=== PATIENT | female | born 1975 | race Hispanic/Latino ===

== ENCOUNTER 2021-07-12 12:43 | Emergency (ER) | payer BC ==
[~2021-07-12] VITALS: Ht 154.9 cm; Wt 90.7 kg
[2021-07-12] MEDS ORDERED: ACETAMINOPHEN 325 MG TAB PO ONE (13:00)
[2021-07-12] MEDS ORDERED: ACETAMINOPHEN 325 MG TAB PO PRN (13:00)
[2021-07-12] MEDS ORDERED: CASIRIVIMAB/IMDEVIMAB 10 ML in SODIUM CHLORIDE 0.9% 100 ML IV ONE (13:00)
[2021-07-12] MEDS ORDERED: SODIUM CHLORIDE 0.9% 100 ML ONE (13:06)
[2021-07-12 13:35] VITALS: BP 135/78
== END 2021-07-12 13:37 | disposition home or self-care (01) ==
LOC: ER 12:47
DX: U07.1 COVID-19 (principal); R50.9 Fever, unspecified; I10 Essential (primary) hypertension; E11.9 Type 2 diabetes mellitus without complications
CPT/HCPCS: 99283; J7050

== ENCOUNTER → 2021-09-25 | Outpatient (CLI) | payer BC ==
[~2021-09-25] MED LIST: IOPAMIDOL 370 MG/ML 200 ML INFUS..BTL INJ ONE; SODIUM CHLORIDE 0.9% 50ML 50 ML ONE
[2021-09-25 09:51] LABS: CREATININE, SERUM 0.62 mg/dL (0.57-1.11)
[2021-09-25 10:17] LABS: INR 0.94; PROTHROMBIN TIME 13.3 seconds (11.9-14.5)
[2021-09-25 10:18] LABS: PARTIAL THROMBOPLASTIN TIME 24.2 seconds (23.8-35.5)
[2021-09-25 10:48] LABS: ALBUMIN 3.2 g/dL (3.5-5.0); ALBUMIN/GLOBULIN RATIO 0.8 (0.8-2.0); ANION GAP 16.1 mmol/L (8-16); CREATININE, SERUM 0.66 mg/dL (0.57-1.11); POTASSIUM 4.1 mmol/L (3.5-5.1)
== END ==
LOC: CT 08:39
PROVIDERS: ATTEND Surgery
DX: D73.5 Infarction of spleen (principal); K76.0 Fatty (change of) liver, not elsewhere classified; E27.9 Disorder of adrenal gland, unspecified
CPT/HCPCS: 36415; 74160; 80053; 82150; 82565; 84520; 85610; 85730; Q9967

== ENCOUNTER 2021-10-07 08:43 | Inpatient (IN) | payer BC ==
[2021-10-03 10:18] LABS: BASOPHILS # (AUTO) 0.1 (0.0-0.1); BASOPHILS % 0.7 % (0.0-1.0); EOSINOPHILS # (AUTO) 0.3 (0.0-0.4); EOSINOPHILS % 3.3 % (0.0-6.0); HEMATOCRIT 39.7 % (34.2-44.1); HEMOGLOBIN 11.8 g/dL (12.0-16.0); LYMPHOCYTES # (AUTO) 2.5 (1.0-3.2); LYMPHOCYTES % 29.5 % (18.0-39.1); MEAN CORPUSCULAR HEMOGLOBIN 21.9 pg (28-32); MEAN CORPUSCULAR HGB CONC 29.7 g/dL (31-35); MEAN CORPUSCULAR VOLUME 73.7 fL (81-99); MONOCYTES # (AUTO) 0.5 (0.2-0.8); MONOCYTES % 5.9 % (4.4-11.3); NEUTROPHILS # (AUTO) 5.1 (2.1-6.9); NEUTROPHILS % 60.4 % (38.7-80.0); PLATELET COUNT 690 x10e3/uL (140-360); RED BLOOD COUNT 5.39 x10e6/uL (3.6-5.1); RED CELL DISTRIBUTION WIDTH 17.9 % (11.7-14.4)
[~2021-10-07] VITALS: Ht 154.9 cm; Wt 92.2 kg
[~2021-10-07 08:43] MED LIST changes: +BASAGLAR K100 UNIT/1 SC; +CIPRO500 MG PO; -IOPAMIDOL 370 MG/ML 200 ML INFUS..BTL INJ ONE; +IPRATROPIU0.2 MG/1 M INH; +IRBESARTAN300 MG PO; +NOVOLIN 70100 UNIT/3 SC; -SODIUM CHLORIDE 0.9% 50ML 50 ML ONE; +SYMBICORT 16010.2 GM INH
[2021-10-07] MEDS ORDERED: INSULIN REGULAR, HUMAN 100 UNIT/1 ML ONE ×2 (09:28→12:57)
[2021-10-07] MEDS ORDERED: FENTANYL CITRATE/PF 100MCG/2 ML INJ ONE ×2 (12:33→15:49)
[2021-10-07] MEDS ORDERED: MIDAZOLAM HCL 2 MG/2 ML VIAL ONE (12:33)
[2021-10-07] MEDS ORDERED: LEVOFLOXACIN 500MG/D5W 100ML 100 ML IV ONE (13:19)
[2021-10-07] MEDS ORDERED: NALOXONE HCL INJ 0.4 MG/ML AMP IV PRN (15:30)
[2021-10-07] MEDS ORDERED: HYDROMORPHONE 0.2MG/ML-SOD CHL 30ML PCA SYRINGE IV ONE (16:01)
[2021-10-07] MEDS: INSULIN REGULAR, HUMAN 100 UNIT/1 ML SQ SCH (16:20)
[2021-10-07] MEDS ORDERED: DEXTROSE 50% SYRINGE 50 ML IV PRN (17:30)
[2021-10-07 17:35] VITALS: BP 100/65
[2021-10-07] MEDS: LEVOFLOXACIN 500MG/D5W 100ML 100 ML IV SCH (17:36)
[2021-10-07 17:45] VITALS: BP 100/65
[2021-10-07 17:53] VITALS: BP 100/65
[2021-10-07] MEDS: SODIUM CHLORIDE 0.9% 1000ML 1,000 ML IV SCH ×2 (17:59→23:56)
[2021-10-07] MEDS ORDERED: ACETAMINOPHEN 1000 MG/100 ML IV PRN (18:00)
[2021-10-07] MEDS: SODIUM CHLORIDE 0.9% 250ML IRRIG IR SCH ×3 (18:15→23:56)
[2021-10-07] MEDS ORDERED: INSULIN REGULAR, HUMAN 100 UNIT/1 ML SQ ONE (19:15)
[2021-10-07 20:00] VITALS: BP 96/74
[2021-10-07 21:00] VITALS: BP 96/74
[2021-10-07] MEDS: HYDROMORPHONE 0.2MG/ML-SOD CHL 30ML PCA SYRINGE IV PRN (23:26)
[2021-10-07] MEDS: ONDANSETRON HCL INJ 2MG/ML 2ML 2 MG/ML VIAL IV PRN (23:56)
[2021-10-08] VITALS (8 sets, daily range): BP systolic 117–138; BP diastolic 76–90
[2021-10-08] MEDS: INSULIN REGULAR, HUMAN 100 UNIT/1 ML SQ SCH ×4 (00:40→18:40)
[2021-10-08] MEDS: SODIUM CHLORIDE 0.9% 250ML IRRIG IR SCH ×6 (04:33→23:39)
[2021-10-08] MEDS: SODIUM CHLORIDE 0.9% 1000ML 1,000 ML IV SCH ×3 (05:28→18:40)
[2021-10-08 07:54] LABS: BASOPHILS # (AUTO) 0.1 (0.0-0.1); BASOPHILS % 0.3 % (0.0-1.0); EOSINOPHILS # (AUTO) 0.1 (0.0-0.4); EOSINOPHILS % 0.7 % (0.0-6.0); HEMATOCRIT 36.5 % (34.2-44.1); HEMOGLOBIN 10.8 g/dL (12.0-16.0); LYMPHOCYTES # (AUTO) 2.1 (1.0-3.2); LYMPHOCYTES % 14.2 % (18.0-39.1); MEAN CORPUSCULAR HGB CONC 29.6 g/dL (31-35); MEAN CORPUSCULAR VOLUME 74.5 fL (81-99); MONOCYTES # (AUTO) 1.2 (0.2-0.8); MONOCYTES % 7.8 % (4.4-11.3); NEUTROPHILS # (AUTO) 11.4 (2.1-6.9); NEUTROPHILS % 76.5 % (38.7-80.0); PLATELET COUNT 417 x10e3/uL (140-360); RED CELL DISTRIBUTION WIDTH 17.8 % (11.7-14.4)
[2021-10-08 08:10] LABS: CALCIUM 7.9 mg/dL (8.4-10.2); CREATININE, SERUM 0.7 mg/dL (0.57-1.11)
[2021-10-08] MEDS: LEVOFLOXACIN 500MG/D5W 100ML 100 ML IV SCH (08:45)
[2021-10-08] MEDS: HYDROMORPHONE 0.2MG/ML-SOD CHL 30ML PCA SYRINGE IV PRN ×2 (08:59→18:46)
[2021-10-08] MEDS ORDERED: ROCURONIUM BROMIDE 10 MG/ML 5ML VIAL IV ONE (19:22)
[2021-10-08] MEDS ORDERED: POVIDONE IODINE 0.05% 0.05 % ML PO ONE (19:22)
[2021-10-08] MEDS ORDERED: ONDANSETRON HCL INJ 2MG/ML 2ML 2 MG/ML VIAL ONE (19:22)
[2021-10-08] MEDS ORDERED: DEXAMETHASONE SOD PHOS INJ 4 MG/ML SDV ONE (19:22)
[2021-10-08] MEDS ORDERED: LIDOCAINE HCL 2% LOCAL INJ 5 ML SDV VIAL INJ ONE (19:22)
[2021-10-08] MEDS ORDERED: PROPOFOL IV EMULSION 10 MG/ML 20 ML VIAL ONE (19:22)
[2021-10-08] MEDS ORDERED: PHENYLEPHRINE HCL 1% 10 MG/ML VIAL ONE (19:22)
[2021-10-08] MEDS ORDERED: SEVOFLURANE INHAL SOLN 250 ML PEN BTL ONE (19:22)
[2021-10-09] VITALS (8 sets, daily range): BP systolic 136–155; BP diastolic 78–96
[2021-10-09] MEDS: SODIUM CHLORIDE 0.9% 1000ML 1,000 ML IV SCH ×4 (00:53→22:45)
[2021-10-09] MEDS: INSULIN REGULAR, HUMAN 100 UNIT/1 ML SQ SCH ×4 (01:25→18:00)
[2021-10-09] MEDS: SODIUM CHLORIDE 0.9% 250ML IRRIG IR SCH ×6 (04:26→21:02)
[2021-10-09 05:05] LABS: BASOPHILS # (AUTO) 0.1 (0.0-0.1); BASOPHILS % 0.4 % (0.0-1.0); EOSINOPHILS # (AUTO) 0.4 (0.0-0.4); HEMATOCRIT 33.4 % (34.2-44.1); HEMOGLOBIN 9.6 g/dL (12.0-16.0); LYMPHOCYTES # (AUTO) 2.4 (1.0-3.2); LYMPHOCYTES % 13.4 % (18.0-39.1); MEAN CORPUSCULAR HEMOGLOBIN 21.7 pg (28-32); MEAN CORPUSCULAR HGB CONC 28.7 g/dL (31-35); MEAN CORPUSCULAR VOLUME 75.6 fL (81-99); MONOCYTES # (AUTO) 1.9 (0.2-0.8); MONOCYTES % 10.5 % (4.4-11.3); NEUTROPHILS % 73.1 % (38.7-80.0); PLATELET COUNT 384 x10e3/uL (140-360); RED BLOOD COUNT 4.42 x10e6/uL (3.6-5.1); RED CELL DISTRIBUTION WIDTH 17.9 % (11.7-14.4)
[2021-10-09 05:26] LABS: ANION GAP 13.6 mmol/L (8-16); CALCIUM 8.2 mg/dL (8.4-10.2); CREATININE, SERUM 0.58 mg/dL (0.57-1.11); POTASSIUM 3.6 mmol/L (3.5-5.1)
[2021-10-09] MEDS ORDERED: INSULIN GLARGINE 100 UNITS/ML VIAL SQ SCH (09:00)
[2021-10-09] MEDS: LEVOFLOXACIN 500MG/D5W 100ML 100 ML IV SCH (12:54)
[2021-10-09] MEDS ORDERED: HYDROMORPHONE 0.2MG/ML-SOD CHL 30ML PCA SYRINGE IV PRN (15:15)
[2021-10-09] MEDS ORDERED: ACETAMINOPHEN 1000 MG/100 ML IV PRN (15:15)
[2021-10-09] MEDS: BISACODYL 10 MG SUPP PR SCH (22:04)
[2021-10-09] MEDS: INSULIN GLARGINE 100 UNITS/ML VIAL SQ SCH (22:25)
[2021-10-10] VITALS (8 sets, daily range): BP systolic 125–144; BP diastolic 75–87
[2021-10-10 05:45] LABS: BASOPHILS # (AUTO) 0.1 (0.0-0.1); BASOPHILS % 0.3 % (0.0-1.0); EOSINOPHILS # (AUTO) 0.6 (0.0-0.4); EOSINOPHILS % 3.3 % (0.0-6.0); HEMATOCRIT 30.7 % (34.2-44.1); LYMPHOCYTES # (AUTO) 2.5 (1.0-3.2); LYMPHOCYTES % 14.8 % (18.0-39.1); MEAN CORPUSCULAR HEMOGLOBIN 21.9 pg (28-32); MEAN CORPUSCULAR HGB CONC 29.3 g/dL (31-35); MEAN CORPUSCULAR VOLUME 74.7 fL (81-99); MONOCYTES # (AUTO) 1.2 (0.2-0.8); NEUTROPHILS # (AUTO) 12.5 (2.1-6.9); NEUTROPHILS % 74.1 % (38.7-80.0); PLATELET COUNT 388 x10e3/uL (140-360); RED BLOOD COUNT 4.11 x10e6/uL (3.6-5.1); RED CELL DISTRIBUTION WIDTH 17.8 % (11.7-14.4)
[2021-10-10 06:19] LABS: ANION GAP 13.1 mmol/L (8-16); CALCIUM 8.6 mg/dL (8.4-10.2); CREATININE, SERUM 0.54 mg/dL (0.57-1.11); POTASSIUM 3.1 mmol/L (3.5-5.1)
[2021-10-10] MEDS: INSULIN REGULAR, HUMAN 100 UNIT/1 ML SQ SCH ×4 (06:53→17:26)
[2021-10-10] MEDS: SODIUM CHLORIDE 0.9% 250ML IRRIG IR SCH ×5 (07:30→20:01)
[2021-10-10 08:14] LABS: HYPOCHROMASIA MODERATE; PLATELET ESTIMATE SLIGHTLY INCREASED; PLATELET MORPHOLOGY COMMENT NORMAL; POIKILOCYTOSIS SLIGHT; RBC MORPHOLOGY COMMENT ABNORMAL
[2021-10-10] MEDS ORDERED: INSULIN GLARGINE 100 UNITS/ML VIAL SQ SCH (09:00)
[2021-10-10] MEDS: LEVOFLOXACIN 500MG/D5W 100ML 100 ML IV SCH (09:01)
[2021-10-10] MEDS: BISACODYL 10 MG SUPP PR SCH ×3 (09:01→21:00)
[2021-10-10] MEDS: INSULIN GLARGINE 100 UNITS/ML VIAL SQ SCH ×2 (10:01→17:25)
[2021-10-10] MEDS: SODIUM CHLORIDE 0.9% 1000ML 1,000 ML IV SCH (10:21)
[2021-10-10] MEDS: HYDROCODONE/APAP 7.5MG-325MG 1 EA TAB PO PRN ×2 (16:36→21:18)
[2021-10-10] MEDS: HYDROMORPHONE 1MG/1ML INJ IV PRN ×2 (19:30→22:44)
[2021-10-11] VITALS (8 sets, daily range): BP systolic 128–151; BP diastolic 76–97
[2021-10-11] MEDS: HYDROMORPHONE 1MG/1ML INJ IV PRN ×2 (00:50→01:50)
[2021-10-11] MEDS: SODIUM CHLORIDE 0.9% 1000ML 1,000 ML IV SCH ×2 (01:53→21:02)
[2021-10-11] MEDS: HYDROCODONE/APAP 7.5MG-325MG 1 EA TAB PO PRN (03:53)
[2021-10-11] MEDS: Morphine 4mg Syringe 4 MG/ML INJ IV PRN ×4 (04:21→23:45)
[2021-10-11] MEDS: INSULIN REGULAR, HUMAN 100 UNIT/1 ML SQ SCH ×6 (05:20→21:58)
[2021-10-11] MEDS: SODIUM CHLORIDE 0.9% 250ML IRRIG IR SCH ×2 (07:30→11:30)
[2021-10-11] MEDS: BISACODYL 10 MG SUPP PR SCH (08:00)
[2021-10-11] MEDS: INSULIN GLARGINE 100 UNITS/ML VIAL SQ SCH ×2 (09:00→21:59)
[2021-10-11] MEDS: ONDANSETRON HCL INJ 2MG/ML 2ML 2 MG/ML VIAL IV PRN ×2 (09:25→17:45)
[2021-10-11] MEDS: LEVOFLOXACIN 500MG/D5W 100ML 100 ML IV SCH (09:56)
[2021-10-11 12:05] LABS: BASOPHILS % 0.3 % (0.0-1.0); EOSINOPHILS # (AUTO) 0.3 (0.0-0.4); EOSINOPHILS % 2.7 % (0.0-6.0); HEMATOCRIT 31.4 % (34.2-44.1); HEMOGLOBIN 9.5 g/dL (12.0-16.0); LYMPHOCYTES # (AUTO) 1.7 (1.0-3.2); MEAN CORPUSCULAR HEMOGLOBIN 21.9 pg (28-32); MEAN CORPUSCULAR HGB CONC 30.3 g/dL (31-35); MEAN CORPUSCULAR VOLUME 72.5 fL (81-99); MONOCYTES # (AUTO) 0.7 (0.2-0.8); MONOCYTES % 6.4 % (4.4-11.3); NEUTROPHILS # (AUTO) 8.6 (2.1-6.9); PLATELET COUNT 415 x10e3/uL (140-360); RED BLOOD COUNT 4.33 x10e6/uL (3.6-5.1); RED CELL DISTRIBUTION WIDTH 17.6 % (11.7-14.4)
[2021-10-11 12:33] LABS: ALANINE AMINOTRANSFERASE 20 IU/L (0-55); ALBUMIN 2.2 g/dL (3.5-5.0); ALBUMIN/GLOBULIN RATIO 0.6 (0.8-2.0); ALKALINE PHOSPHATASE 88 IU/L (40-150); ANION GAP 14.7 mmol/L (8-16); BLOOD UREA NITROGEN < 5 mg/dL (7-26); CALCIUM 8.5 mg/dL (8.4-10.2); CARBON DIOXIDE 22 mmol/L (22-29); CHLORIDE 105 mmol/L (98-107); CREATININE, SERUM 0.52 mg/dL (0.57-1.11); EST GLOMERULAR FILTRATION RATE 128 ML/MIN (60-); GLUCOSE 212 mg/dL (74-118); SODIUM 139 mmol/L (136-145)
[2021-10-11] MEDS: KETOROLAC TROMETHAMINE 30 MG/ML VIAL IM PRN ×2 (12:35→20:44)
[2021-10-11 12:40] LABS: BUN/CREATININE RATIO 10 (6-25)
[2021-10-11 12:41] LABS: POTASSIUM 2.7 mmol/L (3.5-5.1)
[2021-10-11] MEDS ORDERED: POTASSIUM CHLORIDE 20MEQ/100ML 100 ML IV ONE ×2 (13:15→20:00)
[2021-10-12] MEDS: KETOROLAC TROMETHAMINE 30 MG/ML VIAL IM PRN (03:54)
[2021-10-12 04:00] VITALS: BP 138/90
[2021-10-12] MEDS: Morphine 4mg Syringe 4 MG/ML INJ IV PRN ×5 (05:56→23:25)
[2021-10-12] MEDS: INSULIN REGULAR, HUMAN 100 UNIT/1 ML SQ SCH ×4 (07:30→20:06)
[2021-10-12 07:43] LABS: BASOPHILS % 0.4 % (0.0-1.0); EOSINOPHILS # (AUTO) 0.4 (0.0-0.4); EOSINOPHILS % 3.6 % (0.0-6.0); HEMATOCRIT 28.5 % (34.2-44.1); HEMOGLOBIN 8.8 g/dL (12.0-16.0); LYMPHOCYTES % 20.2 % (18.0-39.1); MEAN CORPUSCULAR HEMOGLOBIN 22.2 pg (28-32); MEAN CORPUSCULAR HGB CONC 30.9 g/dL (31-35); MEAN CORPUSCULAR VOLUME 71.8 fL (81-99); MONOCYTES # (AUTO) 0.7 (0.2-0.8); MONOCYTES % 7.4 % (4.4-11.3); NEUTROPHILS # (AUTO) 6.7 (2.1-6.9); NEUTROPHILS % 68.1 % (38.7-80.0); PLATELET COUNT 413 x10e3/uL (140-360); RED BLOOD COUNT 3.97 x10e6/uL (3.6-5.1); RED CELL DISTRIBUTION WIDTH 17.4 % (11.7-14.4)
[2021-10-12 08:14] LABS: ALANINE AMINOTRANSFERASE 19 IU/L (0-55); ALBUMIN 1.9 g/dL (3.5-5.0); ALBUMIN/GLOBULIN RATIO 0.6 (0.8-2.0); ALKALINE PHOSPHATASE 74 IU/L (40-150); ANION GAP 11.8 mmol/L (8-16); BLOOD UREA NITROGEN < 5 mg/dL (7-26); CARBON DIOXIDE 24 mmol/L (22-29); CHLORIDE 107 mmol/L (98-107); EST GLOMERULAR FILTRATION RATE 134 ML/MIN (60-); GLUCOSE 202 mg/dL (74-118); MAGNESIUM 1.6 MG/DL (1.3-2.1); SODIUM 140 mmol/L (136-145)
[2021-10-12 08:16] LABS: BUN/CREATININE RATIO 10 (6-25)
[2021-10-12 08:19] LABS: POTASSIUM 2.8 mmol/L (3.5-5.1)
[2021-10-12] MEDS: INSULIN GLARGINE 100 UNITS/ML VIAL SQ SCH ×2 (09:00→20:06)
[2021-10-12] MEDS: SODIUM CHLORIDE 0.9% 1000ML 1,000 ML IV SCH (10:05)
[2021-10-12] MEDS: LEVOFLOXACIN 500MG/D5W 100ML 100 ML IV SCH (10:06)
[2021-10-12 10:07] VITALS: BP 120/80
[2021-10-12] MEDS: ONDANSETRON HCL INJ 2MG/ML 2ML 2 MG/ML VIAL IV PRN (13:05)
[2021-10-12] MEDS ORDERED: BISACODYL 10 MG SUPP PR ONE (14:00)
[2021-10-12] MEDS: LORAZEPAM 0.5 MG TAB PO PRN (17:47)
[2021-10-12 20:00] VITALS: BP 160/95
[2021-10-12] MEDS ORDERED: POTASSIUM CHLORIDE 20MEQ/100ML 100 ML IV ONE ×2 (20:00→22:00)
[2021-10-12 20:23] VITALS: BP 160/95
[2021-10-12] MEDS: HYDROCODONE/APAP 7.5MG-325MG 1 EA TAB PO PRN (21:52)
[2021-10-13] VITALS (8 sets, daily range): BP systolic 128–161; BP diastolic 80–99
[2021-10-13] MEDS: HYDROCODONE/APAP 7.5MG-325MG 1 EA TAB PO PRN ×5 (01:45→22:09)
[2021-10-13] MEDS: Morphine 4mg Syringe 4 MG/ML INJ IV PRN (05:12)
[2021-10-13 05:49] LABS: BASOPHILS % 0.3 % (0.0-1.0); EOSINOPHILS # (AUTO) 0.3 (0.0-0.4); HEMATOCRIT 32.2 % (34.2-44.1); HEMOGLOBIN 9.5 g/dL (12.0-16.0); LYMPHOCYTES # (AUTO) 2.6 (1.0-3.2); LYMPHOCYTES % 23.7 % (18.0-39.1); MEAN CORPUSCULAR HEMOGLOBIN 22.1 pg (28-32); MEAN CORPUSCULAR HGB CONC 29.5 g/dL (31-35); MEAN CORPUSCULAR VOLUME 75.1 fL (81-99); MONOCYTES # (AUTO) 0.8 (0.2-0.8); MONOCYTES % 7.4 % (4.4-11.3); NEUTROPHILS # (AUTO) 7.2 (2.1-6.9); NEUTROPHILS % 65.4 % (38.7-80.0); PLATELET COUNT 443 x10e3/uL (140-360); RED BLOOD COUNT 4.29 x10e6/uL (3.6-5.1); RED CELL DISTRIBUTION WIDTH 17.9 % (11.7-14.4)
[2021-10-13 06:22] LABS: ALANINE AMINOTRANSFERASE 19 IU/L (0-55); ALBUMIN 2.1 g/dL (3.5-5.0); ALBUMIN/GLOBULIN RATIO 0.6 (0.8-2.0); ALKALINE PHOSPHATASE 76 IU/L (40-150); ANION GAP 10.8 mmol/L (8-16); BLOOD UREA NITROGEN < 5 mg/dL (7-26); BUN/CREATININE RATIO 9 (6-25); CALCIUM 8.1 mg/dL (8.4-10.2); CARBON DIOXIDE 25 mmol/L (22-29); CHLORIDE 107 mmol/L (98-107); CREATININE, SERUM 0.53 mg/dL (0.57-1.11); EST GLOMERULAR FILTRATION RATE 125 ML/MIN (60-); GLUCOSE 173 mg/dL (74-118); SODIUM 140 mmol/L (136-145)
[2021-10-13 06:26] LABS: POTASSIUM 2.8 mmol/L (3.5-5.1)
[2021-10-13] MEDS: INSULIN REGULAR, HUMAN 100 UNIT/1 ML SQ SCH ×4 (07:30→19:33)
[2021-10-13] MEDS: INSULIN GLARGINE 100 UNITS/ML VIAL SQ SCH ×2 (08:30→19:32)
[2021-10-13] MEDS: LEVOFLOXACIN 500MG/D5W 100ML 100 ML IV SCH (10:00)
[2021-10-13] MEDS ORDERED: POTASSIUM CHLORIDE 20 MEQ TAB CR PO ONE ×2 (10:00→14:00)
[2021-10-13] MEDS: LORAZEPAM 0.5 MG TAB PO PRN (10:12)
[2021-10-13] MEDS: SODIUM CHLORIDE 0.9% 1000ML 1,000 ML IV SCH (13:02)
[2021-10-14 00:11] VITALS: BP 138/94
[2021-10-14] MEDS: HYDROCODONE/APAP 7.5MG-325MG 1 EA TAB PO PRN ×3 (03:25→12:26)
[2021-10-14 04:00] VITALS: BP 153/83
[2021-10-14] MEDS: INSULIN REGULAR, HUMAN 100 UNIT/1 ML SQ SCH ×2 (07:30→12:16)
[2021-10-14 08:10] VITALS: BP 150/100
[2021-10-14 08:58] VITALS: BP 150/100
[2021-10-14] MEDS: INSULIN GLARGINE 100 UNITS/ML VIAL SQ SCH (09:00)
[2021-10-14] MEDS: LEVOFLOXACIN 500MG/D5W 100ML 100 ML IV SCH (10:04)
[2021-10-14] MEDS: SODIUM CHLORIDE 0.9% 1000ML 1,000 ML IV SCH (10:28)
[2021-10-14 11:20] VITALS: BP 144/94
[2021-10-14] MEDS ORDERED: ONDANSETRON HCL 4 MG ORAL DISINTEGRATING TAB PO PRN (13:30)
[2021-10-14] MEDS ORDERED: PANTOPRAZOLE SOD 40 MG TABEC PO SCH (16:30)
[2021-10-15] MEDS ORDERED: LEVOFLOXACIN 500 MG TAB PO SCH (10:00)
== END 2021-10-14 14:33 | disposition home or self-care (01) | DRG 801 ==
LOC: OR 08:43 → PACU V 15:21 → MED/SURG 17:01
PROVIDERS: ADMIT Surgery; ATTEND Surgery
PROC: 07TP0ZZ Resection of Spleen, Open Approach (ICD-10-PCS; principal; 2021-10-07 11:00)
DX: D73.5 Infarction of spleen (principal); D73.3 Abscess of spleen; E11.9 Type 2 diabetes mellitus without complications; I10 Essential (primary) hypertension; R53.81 Other malaise; D64.9 Anemia, unspecified; K21.9 Gastro-esophageal reflux disease without esophagitis; E66.9 Obesity, unspecified; Z68.38 Body mass index [BMI] 38.0-38.9, adult; Z88.0 Allergy status to penicillin; Z86.16 Personal history of COVID-19; Z79.4 Long term (current) use of insulin; Z20.822 Contact with and (suspected) exposure to COVID-19
CPT/HCPCS: 36415; 80048; 80053; 81025; 82948; 83735; 84132; 85025; 86850; 86870; 86880; 86900; 86905; 86920; 86922; 88307; 93005; 94799; 96372; 96374; 96376; 97139; 99001; J1100; J1170; J1815; J1817; J1885; J1956; J2001; J2250; J2270; J2370; J2405; J3010; J3480; J7030; U0002

== ENCOUNTER 2023-02-16 09:06 | Inpatient (IN) | payer BC ==
[2023-02-13 10:55] LABS: ANION GAP 12.5 mmol/L (8-16); CALCIUM 9.2 mg/dL (8.4-10.2); CREATININE, SERUM 0.63 mg/dL (0.57-1.11); POTASSIUM 4.5 mmol/L (3.5-5.1)
[~2023-02-16] VITALS: Ht 154.9 cm; Wt 90.3 kg
[2023-02-16] VITALS (8 sets, daily range): BP systolic 150–188; BP diastolic 92–125; PULSE 87–103; RESP 18–20; TEMP 97.3–97.8; O2SAT 95–99
[~2023-02-16 09:06] MED LIST changes: +CARVEDILOL3.125 MG PO; +HYDROCODONE/APAP 7.5MG-325MG 1 EA TAB PO PRN
[2023-02-16] MEDS ORDERED: BUPIVACAINE HCL 0.25% 10ML MPF VIAL INJ ONE (09:43)
[2023-02-16] MEDS ORDERED: LEVOFLOXACIN 500MG/D5W 100ML 100 ML IV ONE (09:48)
[2023-02-16] MEDS ORDERED: LACTATED RINGER'S 1,000 ML ONE (09:48)
[2023-02-16] MEDS ORDERED: SUCCINYLCHOLINE CHLORIDE 20 MG/ML 10ML VIAL ONE (11:09)
[2023-02-16] MEDS ORDERED: SEVOFLURANE INHAL SOLN 250 ML PEN BTL ONE (11:52)
[2023-02-16] MEDS ORDERED: GLYCOPYRROLATE INJ 0.2 MG/ML VIAL ONE (11:52)
[2023-02-16] MEDS ORDERED: PROPOFOL IV EMULSION 10 MG/ML 20 ML VIAL ONE (11:52)
[2023-02-16] MEDS ORDERED: ONDANSETRON HCL INJ 2MG/ML 2ML 2 MG/ML VIAL ONE ×2 (11:52→14:38)
[2023-02-16] MEDS ORDERED: LIDOCAINE HCL 2% LOCAL INJ 5 ML SDV VIAL INJ ONE (11:52)
[2023-02-16] MEDS ORDERED: EPHEDRINE SULFATE INJ 50 MG/ML VIAL ONE (11:52)
[2023-02-16] MEDS ORDERED: PHENYLEPHRINE HCL 1% 10 MG/ML VIAL ONE (11:52)
[2023-02-16] MEDS ORDERED: ROCURONIUM BROMIDE 10 MG/ML 5ML VIAL IV ONE (11:52)
[2023-02-16] MEDS ORDERED: NEOSTIGMINE 1 MG/ML 10ML VIAL ONE (11:52)
[2023-02-16] MEDS ORDERED: METOCLOPRAMIDE HCL 10 MG/2ML VIAL ONE ×2 (11:52→14:38)
[2023-02-16] MEDS ORDERED: POVIDONE IODINE 0.05% 0.05 % ML PO ONE (11:52)
[2023-02-16] MEDS ORDERED: VASOPRESSIN INJ 20 UNIT/ML VIAL ONE (11:52)
[2023-02-16] MEDS ORDERED: ROPIVACAINE 0.5% 5 MG/ML 30 ML SDV ONE (11:56)
[2023-02-16] MEDS ORDERED: DEXAMETHASONE SOD PHOS 10 MG/1 ML VIAL ONE (11:56)
[2023-02-16] MEDS ORDERED: MIDAZOLAM HCL 2 MG/2 ML VIAL ONE (12:01)
[2023-02-16] MEDS ORDERED: FENTANYL CITRATE/PF 100MCG/2 ML INJ ONE (12:01)
[2023-02-16] MEDS ORDERED: SUGAMMADEX SODIUM 200 MG/2 ML VIAL IV ONE (13:59)
[2023-02-16] MEDS: FENTANYL CITRATE/PF 100MCG/2 ML INJ ONE ×2 (14:35→14:45)
[2023-02-16] MEDS: HYDROMORPHONE 1MG/1ML INJ ONE ×2 (15:05→15:20)
[2023-02-16] MEDS ORDERED: HYDROMORPHONE 1MG/1ML INJ ONE (15:34)
[2023-02-16] MEDS ORDERED: PROMETHAZINE HCL (IM) 25 MG/ML VIAL IM ONE (16:14)
[2023-02-16] MEDS ORDERED: SCOPOLAMINE 1 MG PATCH TOP SCH (16:30)
[2023-02-16] MEDS ORDERED: INSULIN GLARGINE HUM REC ANLOG 70 UNIT SC SCH (17:30)
[2023-02-16] MEDS ORDERED: [UNRECOGNIZED DRUG - OTHER] SC SCH (17:30)
[2023-02-16] MEDS: SODIUM CHLORIDE 0.9% 1000ML 1,000 ML IV SCH (18:04)
[2023-02-16] MEDS: CARVEDILOL 3.125 MG TAB PO SCH (18:05)
[2023-02-16] MEDS: INSULIN GLARGINE 100 UNITS/ML VIAL SQ SCH (18:06)
[2023-02-16] MEDS: ONDANSETRON HCL INJ 2MG/ML 2ML 2 MG/ML VIAL IV PRN ×2 (19:00→23:40)
[2023-02-16] MEDS: Morphine 2mg Syringe 2 MG/ML SYR IV PRN ×3 (19:01→23:40)
[2023-02-16] MEDS ORDERED: IRBESARTAN 150 MG TAB PO STA (21:06)
[2023-02-16] MEDS ORDERED: DEXTROSE 50% SYRINGE 50 ML IV PRN (21:15)
[2023-02-16] MEDS ORDERED: INSULIN ASPART 70/30 100 UNITS/ML VIAL SC ONE (21:15)
[2023-02-16] MEDS: ENOXAPARIN SOD INJ 40 MG/0.4 ML SYR SC SCH (23:18)
[2023-02-17] MEDS: SODIUM CHLORIDE 0.9% 1000ML 1,000 ML IV SCH ×2 (01:53→04:32)
[2023-02-17 04:00] VITALS: BP 121/88; PULSE 94; RESP 18; TEMP 98.1; O2SAT 99
[2023-02-17 05:58] LABS: BASOPHILS % 0.2 % (0.0-1.0); HEMATOCRIT 38.5 % (34.2-44.1); HEMOGLOBIN 12.2 g/dL (12.0-16.0); LYMPHOCYTES # (AUTO) 3.1 (1.0-3.2); LYMPHOCYTES % 16.2 % (18.0-39.1); MEAN CORPUSCULAR HEMOGLOBIN 25.4 pg (28-32); MEAN CORPUSCULAR HGB CONC 31.7 g/dL (31-35); MONOCYTES # (AUTO) 1.4 (0.2-0.8); MONOCYTES % 7.6 % (4.4-11.3); NEUTROPHILS # (AUTO) 14.3 (2.1-6.9); NEUTROPHILS % 75.6 % (38.7-80.0); PLATELET COUNT 555 x10e3/uL (140-360); RED BLOOD COUNT 4.81 x10e6/uL (3.6-5.1); RED CELL DISTRIBUTION WIDTH 17.2 % (11.7-14.4)
[2023-02-17] MEDS: ONDANSETRON HCL INJ 2MG/ML 2ML 2 MG/ML VIAL IV PRN (06:01)
[2023-02-17] MEDS: Morphine 2mg Syringe 2 MG/ML SYR IV PRN (06:01)
[2023-02-17 06:38] LABS: ALBUMIN 3.1 g/dL (3.5-5.0); ALBUMIN/GLOBULIN RATIO 0.8 (0.8-2.0); ANION GAP 11.9 mmol/L (8-16); CALCIUM 8.7 mg/dL (8.4-10.2); CREATININE, SERUM 0.71 mg/dL (0.57-1.11); MAGNESIUM 1.6 MG/DL (1.3-2.1); PHOSPHORUS 3.2 MG/DL (2.3-4.7); POTASSIUM 3.9 mmol/L (3.5-5.1)
[2023-02-17 08:00] VITALS: BP 135/90; PULSE 89; RESP 20; TEMP 98.3; O2SAT 98
[2023-02-17] MEDS ORDERED: IRBESARTAN 150 MG TAB PO SCH (09:00)
[2023-02-17] MEDS: CARVEDILOL 3.125 MG TAB PO SCH (09:01)
[2023-02-17] MEDS: ENOXAPARIN SOD INJ 40 MG/0.4 ML SYR SC SCH (09:02)
[2023-02-17] MEDS: INSULIN LISPRO 100 UNIT/1 ML 3ML VIAL SQ SCH ×2 (09:05→12:38)
[2023-02-17] MEDS: INSULIN GLARGINE 100 UNITS/ML VIAL SQ SCH (09:05)
[2023-02-17 09:40] VITALS: BP 135/90; PULSE 89; RESP 20; TEMP 98.3; O2SAT 98
[2023-02-17 12:00] VITALS: BP 141/83; PULSE 79; RESP 19; TEMP 98.6; O2SAT 98
== END 2023-02-17 14:35 | disposition home or self-care (01) | DRG 621 ==
LOC: OR 09:06 → PACU V 15:29 → MED/SURG3 16:51
PROVIDERS: ADMIT Internal Medicine; ATTEND Internal Medicine
PROC: 0DB64Z3 Excision of Stomach, Percutaneous Endoscopic Approach, Vertical (ICD-10-PCS; principal; 2023-02-16 11:22)
DX: E66.01 Morbid (severe) obesity due to excess calories (principal); Z68.38 Body mass index [BMI] 38.0-38.9, adult; I11.9 Hypertensive heart disease without heart failure; E11.9 Type 2 diabetes mellitus without complications; Z88.0 Allergy status to penicillin; Z90.49 Acquired absence of other specified parts of digestive tract
CPT/HCPCS: 36415; 80048; 80053; 81025; 82948; 83735; 84100; 85025; 88304; 88307; 88342; 93005; 94799; 96372; J0330; J1100; J1170; J1650; J1815; J1956; J2001; J2250; J2270; J2370; J2405; J2550; J2710; J2765; J2795; J7030